=== PATIENT | female | born 1995 ===

== ENCOUNTER 2022-06-11 12:22 | Inpatient (IN) | payer BC ==
[2022-06-11] MEDS ORDERED: Carboprost Tromethamine 250 MCG/1 ML Amp IM PRN (13:05)
[2022-06-11] MEDS ORDERED: Sodium Chloride 0.9% 2.5 ML Syringe FLUSH PRN (13:05)
[2022-06-11] MEDS ORDERED: Sodium Chloride 0.9% 10 ML Syringe FLUSH PRN (13:05)
[2022-06-11] MEDS ORDERED: Butorphanol 1 MG/ML SDV IVPUSH PRN (13:05)
[2022-06-11] MEDS ORDERED: Methylergonovine 0.2 MG/1 ML Amp IM PRN ×2 (13:05→23:47)
[2022-06-11] MEDS ORDERED: Water For Irrigation,Sterile 1,000 ML Container IRR PRN (13:05)
[2022-06-11] MEDS ORDERED: Sodium Chloride 0.9% 20 ML SDV IV PRN (13:05)
[2022-06-11] MEDS ORDERED: Lidocaine 1% 50 ML MDV INJECT PRN (13:05)
[2022-06-11] MEDS ORDERED: Tranexamic Acid 1,000 MG in Sodium Chloride 0.9% 100 ML IV PRN ×2 (13:05→23:47)
[2022-06-11] MEDS ORDERED: Misoprostol 200 MCG Tab PO PRN (13:05)
[2022-06-11] MEDS ORDERED: Lactated Ringers 1,000 ML IV ONE (13:15)
[2022-06-11] MEDS ORDERED: Lactated Ringers 1,000 ML IV SCH (13:15)
[2022-06-11] MEDS ORDERED: Oxytocin/0.9 % Sodium Chloride 30 UNIT/500 ML BAG IV SCH (13:15)
[2022-06-11] MEDS ORDERED: ePHEDrine 50 MG/ML SDV IVPUSH PRN ×2 (16:28)
[2022-06-11] MEDS ORDERED: Ropivacaine HCl/PF 400 MG in Premix Bag 1 BAG EPIDUR SCH (16:30)
[2022-06-11] MEDS ORDERED: Phenylephrine HCl In 0.9% NaCl 1 MG/10 ML Vial IVPUSH SCH (16:30)
[2022-06-11] MEDS ORDERED: Ibuprofen 800 MG Tab ONE (23:20)
[2022-06-11] MEDS ORDERED: Ibuprofen 400 MG Tab PO PRN (23:47)
[2022-06-11] MEDS ORDERED: Benzocaine/Menthol 20%-0.5% Spray 78 GM Cannister TOP PRN (23:47)
[2022-06-11] MEDS ORDERED: Bisacodyl 10 MG Supp RECTAL PRN (23:47)
[2022-06-11] MEDS ORDERED: Lanolin 100% Cream 7 GM Tube TOP PRN (23:47)
[2022-06-11] MEDS ORDERED: oxyCODONE 5 MG Tab PO PRN (23:47)
[2022-06-11] MEDS ORDERED: Ibuprofen 800 MG Tab PO PRN (23:47)
[2022-06-11] MEDS ORDERED: Acetaminophen 500 MG Tab PO PRN ×2 (23:47)
[2022-06-11] MEDS ORDERED: Docusate Sodium 100 MG Cap PO PRN (23:47)
[2022-06-11] MEDS ORDERED: Witch Hazel Medicated Pads 40/Jar TOP PRN (23:47)
[2022-06-13] MEDS ORDERED: Acetaminophen 500 MG Tab ONE (16:01)
== END 2022-06-13 20:55 | disposition home or self-care (01) | DRG 560 ==
LOC: MW.OBCHECK 12:22 → MW.OB 12:23 → MW.OBCHECK 13:04 → MW.OB 13:05 → OBSVTOIN 23:00 → MW.OB 06-12 02:09 → MW.ZCENSUS 06-13 13:51
PROVIDERS: ADMIT Obstetrics & Gynecology; ATTEND Obstetrics & Gynecology
PROC: 10E0XZZ Delivery of Products of Conception, External Approach (ICD-10-PCS; principal; 2022-06-11)
PROC: 0KQM0ZZ Repair Perineum Muscle, Open Approach (ICD-10-PCS; 2022-06-11)
PROC: 10907ZC Drainage of Amniotic Fluid, Therapeutic from Products of Conception, Via Natural or Artificial Opening (ICD-10-PCS; 2022-06-11)
DX: O40.3XX0 Polyhydramnios, third trimester, not applicable or unspecified (principal); Z3A.39 39 weeks gestation of pregnancy; Z37.0 Single live birth; Z20.822 Contact with and (suspected) exposure to COVID-19; O76 Abnormality in fetal heart rate and rhythm complicating labor and delivery; O70.1 Second degree perineal laceration during delivery
CPT/HCPCS: 36415; 59025; 59409; 82803; 85014; 85018; 85027; 86592; 86850; 86900; 86901; A9270-GY; J2590; U0002